=== PATIENT | female | born 1955 | race Caucasian/White ===

== ENCOUNTER 2020-03-14 13:56 | Outpatient (CLI) | payer OTHER ==
[~2020-03-14 13:56] MED LIST: RELAGESIC TABL1 EACH PO; VASOTEC5 MG PO
== END 2020-03-14 14:14 | disposition home or self-care (01) ==
LOC: NUCLEAR 13:56
DX: M81.0 Age-related osteoporosis without current pathological fracture (principal); E55.9 Vitamin D deficiency, unspecified

== ENCOUNTER 2021-12-26 12:56 | Outpatient (CLI) | payer OTHER | END 2021-12-26 13:07 | disposition home or self-care (01) | LOC: SONOGRAMA 12:56 | DX: G96.191 Perineural cyst (principal) ==

== ENCOUNTER 2022-05-03 13:11 | Outpatient (CLI) | payer OTHER | END 2022-05-03 13:13 | disposition home or self-care (01) | LOC: NUCLEAR 13:11 | PROVIDERS: ATTEND General Practice | DX: M81.0 Age-related osteoporosis without current pathological fracture (principal); Z13.820 Encounter for screening for osteoporosis; Z88.0 Allergy status to penicillin ==

== ENCOUNTER 2024-06-30 12:15 | Outpatient (CLI) | payer OTHER | END 2024-06-30 12:26 | disposition home or self-care (01) | LOC: MAMO-SONO 12:15 | DX: N64.9 Disorder of breast, unspecified (principal); Z12.31 Encounter for screening mammogram for malignant neoplasm of breast ==

== ENCOUNTER 2025-01-19 13:09 | Outpatient (CLI) | payer OTHER | END 2025-01-19 13:10 | disposition home or self-care (01) | LOC: NUCLEAR 13:09 | DX: M81.6 Localized osteoporosis [Lequesne] (principal); M81.0 Age-related osteoporosis without current pathological fracture ==